=== PATIENT | female | born 1995 | race Caucasian/White ===

== ENCOUNTER 2019-07-14 15:06 | Inpatient (IN) | payer OTHER ==
[~2019-07-14] VITALS: Ht 167.6 cm; Wt 123.8 kg
[2019-08-11] MEDS ORDERED: FOLIC ACID0.8 M1 PO (10:00)
[2019-08-11] MEDS ORDERED: OBSTETRIX DHA1 EACH PO (10:00)
[2019-08-11] MEDS ORDERED: FOLGARD TABLET1 EACH PO (10:01)
== END 2019-08-14 09:52 | DRG 788 ==
LOC: LDR 08-11 09:18 → OB/GYN 08-11 09:18 → O/R 08-11 16:21 → OB/GYN 08-11 17:20
PROVIDERS: ADMIT Obstetrics & Gynecology
PROC: 4A1HXCZ Monitoring of Products of Conception, Cardiac Rate, External Approach (ICD-10-PCS; 2019-08-11)
PROC: 4A033R1 Measurement of Arterial Saturation, Peripheral, Percutaneous Approach (ICD-10-PCS; 2019-08-11)
PROC: 10D00Z1 Extraction of Products of Conception, Low, Open Approach (ICD-10-PCS; principal; 2019-08-11 14:00)
DX: O33.8 Maternal care for disproportion of other origin (principal); Z3A.38 38 weeks gestation of pregnancy; Z37.0 Single live birth

== ENCOUNTER 2019-08-11 04:26 | Outpatient (CLI) | payer OTHER ==
[2019-08-11] MEDS ORDERED: FOLIC ACID0.8 M1 PO (10:00)
[2019-08-11] MEDS ORDERED: OBSTETRIX DHA1 EACH PO (10:00)
[2019-08-11] MEDS ORDERED: FOLGARD TABLET1 EACH PO (10:01)
== END 2019-08-11 09:19 | disposition still patient (30) ==
LOC: OBS/DEL 04:26
DX: O47.1 False labor at or after 37 completed weeks of gestation (principal)